=== PATIENT | male | born 1975 | race African-American/Black ===

== ENCOUNTER 2018-06-21 19:38 | Emergency (ER) | payer OTHER ==
[~2018-06-21] VITALS: Ht 188 cm; Wt 89.7 kg
[2018-06-21 19:44] VITALS: TEMP 37.5; Ht 188 cm; Wt 89.7 kg
[2018-06-21] MEDS ORDERED: MoRPHine SULFATE 4 MG/ML 1 ML CARP\\VIAL IV STA (20:22)
[2018-06-21] MEDS ORDERED: FAMOTIDINE 20MG/5ML IV PUSH IV STA (20:22)
[2018-06-21] MEDS ORDERED: SODIUM CHLORIDE 0.9% 1000ML 2,000 ML IV STA (20:22)
[2018-06-21] MEDS ORDERED: METHYLPREDNISOLONE 125 MG VIAL IV STA (20:22)
[2018-06-21] MEDS ORDERED: DiphenhydrAMINE HCL 50 MG/ML VIAL IV STA (20:22)
[2018-06-21] MEDS ORDERED: KETOROLAC TROMETHAMINE 30 MG/ML VIAL IV STA (20:22)
[2018-06-21 20:52] LABS: BASO % 0.3 %; BASO ABS # 0.03 K/uL (0-0.2); EOS % 2.1 %; EOS ABS # 0.18 K/uL (0-0.5); HEMATOCRIT 39.5 % (42-52); IG# 0.01 K/uL (0.00-0.02); LYMPH % 26.2 %; LYMPH ABS # 2.26 K/uL (1.2-3.4); MEAN CELL VOLUME 84.4 fL (80-100); MEAN CORPUSCULAR HEMOGLOBIN 27.8 pg (25-34); MEAN CORPUSCULAR HGB CONC 32.9 g/dl (32-36); MEAN PLATELET VOLUME 10.3 fL (7.4-10.4); MONO % 9.9 %; MONO ABS # 0.85 K/uL (0.11-0.59); NEUT % 61.4 %; NEUT ABS # 5.28 K/uL (1.4-6.5); PLATELET COUNT 188 K/uL (130-400); RED CELL DISTRIBUTION WIDTH CV 14.9 % (11.5-14.5); RED CELL DISTRIBUTION WIDTH SD 45.9 fL (36.4-46.3); WHITE BLOOD COUNT 8.61 K/uL (4.8-10.8)
[2018-06-21 21:19] LABS: CALCIUM 8.7 mg/dl (8.5-10.1); CREATININE 0.99 mg/dl (0.60-1.40); POTASSIUM 3.8 mmol/L (3.5-5.1)
[2018-06-21] MEDS ORDERED: MULT-506 PO (21:52)
[2018-06-21] MEDS ORDERED: CLINDAMYCIN HCL 150 MG CAP PO ONE (22:30)
[2018-06-21] MEDS ORDERED: CLIN300C2 PO (22:36)
[2018-06-21] MEDS ORDERED: PRED50TA PO (22:36)
[2018-06-21 22:58] VITALS: BP 157/83; PULSE 81; O2SAT 98
--- NOTE | 2018-06-22 00:58 | EMERGENCY ROOM VISIT NOTE ---
History Report prepared by [place]: Rosaura Rodriguez Under the Supervision of: Dr. Estuardo Vegas D.O. First contact with patient: 20:11 Chief Complaint: ALLERGIC REACTION Stated Complaint: SWELLED FACE Nursing Triage Summary: Pt recently started taking ampicillin for tooth ache. Pt reports swelling to his face that started last night. Denies SOB, denies difficulty breathing. History of Present Illness The patient is a 42 year old male who presents to the Emergency Room with complaints of constant facial swelling and pain beginning last night. He notes he used Anbesol cream under his gum for a toothache last night. The patient reports he has used Anbesol in the past, but has never used the cream. He states the swelling worsened from its onset until about 7 hours ago. The patient notes Ibuprofen and Aleve slightly relieved his pain. He states he is having some difficulty swallowing due to the facial swelling. The patient denies throat swelling or SOB, CP, abdominal pain, or swelling anywhere else. He reports he washed the area he put ampicillin on with soap and water. No pain with movement of eyes. Source of History: patient Onset: last night Position: head (face) Quality: other (swelling, pain) Timing: constant Modifying Factors (Relieving): ibuprofen, other (aleve) Associated Symptoms: No chest pain, No SOB Note: Denies: throat swelling, any other swelling Review of Systems See HPI for pertinent positives & negatives. A total of 10 systems reviewed and were otherwise negative. Past Medical & Surgical Medical Problems: (1) HTN (hypertension) Surgical Problems: (1) Hx of abdominal surgery Family History Hypertension Social History Smoking Status: Current Every Day Smoker Occupation Status: employed Current/Historical Medications Scheduled Clindamycin Hcl (Cleocin), 300 MG PO TID Multivitamin (Multivitamin), 1 TAB PO DAILY Prednisone (Prednisone), 50 MG PO DAILY Allergies Coded Allergies: Penicillins (Verified Allergy, Severe, HIVES, 06/21/18) Physical Exam Vital Signs Date Time Temp Pulse Resp B/P (MAP) Pulse Ox O2 Delivery O2 Flow Rate FiO2 06/21/18 22:58 81 18 157/83 98 06/21/18 22:26 69 16 167/84 99 Room Air 06/21/18 21:03 62 16 227/125 100 Room Air 213/123 06/21/18 19:48 Room Air 06/21/18 19:44 37.5 127 18 178/99 99 Room Air Physical Exam GENERAL: Sitting up in bed, alert, well appearing, well nourished, no distress, non-toxic EYE EXAM: normal conjunctiva. PERRL and EOM's grossly intact. OROPHARYNX: no exudate, no erythema, lips, buccal mucosa, and tongue normal and mucous membranes are moist FACE: Moderate swelling of upper lip tracking up to the nose. Inferior turbinates are edematous. NECK: supple, no nuchal rigidity, no adenopathy, non-tender LUNGS: Clear to auscultation. Normal chest wall mechanics HEART: no murmurs, S1 normal and S2 normal ABDOMEN: abdomen soft, non-tender, normo-active bowel sounds, no masses, no rebound or guarding. BACK: Back is symmetrical on inspection and there is no deformity, no midline tenderness, no CVA tenderness. SKIN: no rashes and no bruising UPPER EXTREMITIES: upper extremities are grossly normal. LOWER EXTREMITIES: No pitting edema. NEURO EXAM: Normal sensorium, cranial nerves II-XII grossly intact, normal speech, no gross weakness of arms, no gross weakness of legs. Medical Decision & Procedures Laboratory Results 06/21/18 20:40 Red Blood Count 4.68, Mean Corpuscular Volume 84.4, Mean Corpuscular Hemoglobin 27.8, Mean Corpuscular Hemoglobin Concent 32.9, Mean Platelet Volume 10.3, Neutrophils (%) (Auto) 61.4, Lymphocytes (%) (Auto) 26.2, Monocytes (%) (Auto) 9.9, Eosinophils (%) (Auto) 2.1, Basophils (%) (Auto) 0.3, Neutrophils # (Auto) 5.28, Lymphocytes # (Auto) 2.26, Monocytes # (Auto) 0.85, Eosinophils # (Auto) 0.18, Basophils # (Auto) 0.03 06/21/18 20:40 Test 06/21/18 20:40 White Blood Count 8.61 K/uL (4.8-10.8) Red Blood Count 4.68 M/uL (4.7-6.1) Hemoglobin 13.0 g/dL (14.0-18.0) Hematocrit 39.5 % (42-52) Mean Corpuscular Volume 84.4 fL (80-100) Mean Corpuscular Hemoglobin 27.8 pg (25-34) Mean Corpuscular Hemoglobin Concent 32.9 g/dl (32-36) Platelet Count 188 K/uL (130-400) Mean Platelet Volume 10.3 fL (7.4-10.4) Neutrophils (%) (Auto) 61.4 % Lymphocytes (%) (Auto) 26.2 % Monocytes (%) (Auto) 9.9 % Eosinophils (%) (Auto) 2.1 % Basophils (%) (Auto) 0.3 % Neutrophils # (Auto) 5.28 K/uL (1.4-6.5) Lymphocytes # (Auto) 2.26 K/uL (1.2-3.4) Monocytes # (Auto) 0.85 K/uL (0.11-0.59) Eosinophils # (Auto) 0.18 K/uL (0-0.5) Basophils # (Auto) 0.03 K/uL (0-0.2) RDW Standard Deviation 45.9 fL (36.4-46.3) RDW Coefficient of Variation 14.9 % (11.5-14.5) Immature Granulocyte % (Auto) 0.1 % Immature Granulocyte # (Auto) 0.01 K/uL (0.00-0.02) Anion Gap 5.0 mmol/L (3-11) Est Creatinine Clear Calc Drug Dose 115.4 ml/min Estimated GFR () 110.0 Estimated GFR (Non- 94.9 BUN/Creatinine Ratio 13.2 (10-20) Calcium Level 8.7 mg/dl (8.5-10.1) Laboratory results per my review. Medications Administered Medications (Trade) Dose Ordered Sig/Caterina Route Start Time Stop Time Status Last Admin Dose Admin Sodium Chloride 2,000 ml @ 999 mls/hr Q2H1M STAT IV 06/21/18 20:22 06/21/18 22:22 DC 06/21/18 20:54 999 MLS/HR Diphenhydramine HCl (Benadryl Inj) 50 mg NOW STAT IV 06/21/18 20:22 06/21/18 20:24 DC 06/21/18 20:55 50 MG Ketorolac Tromethamine (Toradol Inj) 30 mg NOW STAT IV 06/21/18 20:22 06/21/18 20:24 DC 06/21/18 20:55 30 MG Morphine Sulfate (MoRPHine SULFATE INJ) 4 mg NOW STAT IV 06/21/18 20:22 06/21/18 20:24 DC 06/21/18 20:55 4 MG Methylprednisolone Sodium Succinate (Solu-Medrol IV) 125 mg NOW STAT IV 06/21/18 20:22 06/21/18 20:24 DC 06/21/18 20:55 125 MG Famotidine (Pepcid 20mg Iv Push) 20 mg ONE STAT IV 06/21/18 20:22 06/21/18 20:24 DC 06/21/18 20:54 20 MG Clindamycin HCl (Cleocin Cap) 300 mg ONE ONCE PO 06/21/18 22:30 06/21/18 22:31 DC 06/21/18 22:33 300 MG ED Course ED COURSE: Vital signs were reviewed and showed tachycardia and situational hypertension. The patients medical record was reviewed The above diagnostic studies were performed and reviewed. ED treatments and interventions as stated above. 2011: The patient was evaluated in room B8. A complete history and physical examination was performed. 2021: Ordered Famotidine 20 mg IV, Solu-Medrol IV 125 mg IV, Morphine Sulfate 4 mg IV, Toradol Inj 30 mg IV, Benadryl Inj 50 mg IV, Sodium Chloride 2000 ml @ 999 mls/hr IV 2216: Upon reevaluation, the patient is feeling better. I discussed my findings with the patient and he understands and agrees with the treatment plan. 2229: Ordered Cleocin Cap 2000 mg PO. Based on the patients age, coexisting illnesses, exam and lab findings the decision to treat as an outpatient was made. The patient remained stable while under my care. The patient appeared well at the time of discharge. 4 Medical Decision Etiologies such as allergic reaction, anaphylaxis, urticaria, Rahman-Torsten syndrome, toxic epidermal necrolysis, erythema multiforme, cellulitis, as well as others were entertained. Patient is a 42-year-old male who presents the ER for swelling of his upper lip after placing a cream on his upper jaw to help numb the pain. Swelling started shortly after this and has continued up until several hours from now. Swelling has remained stable for the past 5 hours. Patient has no other complaints at this time. He is able to eat and drink without difficulty. Normal phonation. No stridor. Patient was extremely hypertensive initially Benadryl and steroids on famotidine. No increase in swelling. I do question if this is truly allergic reaction versus infection and consequently placed him on Cleocin as he does have some dental pain but there is no obvious signs of infection. I do favor this most likely an allergic reaction. He does not take any STEPH/ARB. Nothing to suggest angioedema. Patient was updated at bedside and discharged to follow-up with PCP as an outpatient. Patient was covered with antibiotics and steroids in case this is initially related to infection. Discussed with Pt concerning signs and symptoms to watch out for. Pt was instructed to follow up with their PCP and discussed with the patient their option to return to the ED at anytime for persistent or worsening symptoms. The appropriate anticipatory guidance and out-patient management, including indications for return to the emergency department, were explained at length to the patient and understood. Medication Reconcilliation Current Medication List: was personally reviewed by me Blood Pressure Screening Patient's blood pressure: Elevated blood pressure Blood pressure disposition: Elevated BP felt to be situational Impression Primary Impression: Swelling of face Additional Impression: Dental infection Scribe Attestation The scribe's documentation has been prepared under my direction and personally reviewed by me in its entirety. I confirm that the note above accurately reflects all work, treatment, procedures, and medical decision making performed by me. Departure Information Dispostion Home / Self-Care Prescriptions Prednisone (PREDNISONE) 50 Mg Tab 50 MG PO DAILY for 4 Days, TAB Prov: Estuardo Vegas, DO 06/21/18 Clindamycin Hcl (CLEOCIN) 300 Mg Cap 300 MG PO TID for 10 Days, CAP Prov: Estuardo Vegas, DO 06/21/18 Forms HOME CARE DOCUMENTATION FORM, IMPORTANT VISIT INFORMATION Patient Instructions My [facility] Additional Instructions Please follow up with your primary care doctor with in the next 24 hours. Any worsening of your symptoms, please return to the ED immediately. This includes any fevers greater than 100.4, worsening pain, chest pain, shortness breath, persistent nausea, vomiting, unable to eat or drink, trouble swallowing, trouble breathing, increased swelling of your lip/tongue/mouth/throat or any other concerning signs or symptoms from your standpoint. Please take steroids as prescribed. Please take antibiotics as prescribed. Please follow-up with your PCP in regards to your blood pressure. Problem Qualifiers
== END 2018-06-21 22:55 | disposition home or self-care (01) ==
LOC: C.EDB 19:40
DX: K04.7 Periapical abscess without sinus (principal); I10 Essential (primary) hypertension; F17.210 Nicotine dependence, cigarettes, uncomplicated; Z82.49 Family history of ischemic heart disease and other diseases of the circulatory system; Z88.0 Allergy status to penicillin